=== PATIENT | male | born 1980 | race Caucasian/White ===

== ENCOUNTER 2017-09-12 12:23 | Emergency (ER) | payer SELFPAY ==
--- NOTE | 2017-09-12 13:41 | ER Document Report ---
HPI - HPI Pain Level: 3 Notes: Patient is a 37-year-old male no significant past medical history presents ED complaining of possible perforation to his left tympanic membrane. Patient states that over the last couple days he has had nasal congestion and discharge with your pressure. Patient states that his illness is overall improved, but he was having decreased hearing in the left ear so he went to the urgent care clinic who pulled out wax from his left TM with questionable component of the tympanic membrane. Patient had bleeding in his ear since then, but states that his hearing slightly improved thereafter although it is still muffled. Patient otherwise feels well without any headache, tinnitus, or dizziness. Denies any fever, head injury, neck pain, sore throat, chest pain, palpitations, syncope, cough, shortness of breath, wheeze, dyspnea, abdominal pain, nausea/vomiting/ diarrhea, urinary retention, dysuria, hematuria, or rash. Patient denies any drug allergies. - ROS Notes: REVIEW OF SYSTEMS: CONSTITUTIONAL : Denies fever, chills, or sweats. Denies recent illness. EENT: see hpi CARDIOVASCULAR: Denies chest pain. Denies palpitations or racing or irregular heart beat. RESPIRATORY: Denies cough, cold, or chest congestion. Denies shortness of breath, difficulty breathing, or wheezing. GASTROINTESTINAL: Denies abdominal pain or distention. Denies nausea, vomiting , or diarrhea. Denies blood in vomitus, stools, or per rectum. Denies black, tarry stools. Denies constipation. GENITOURINARY: Denies difficulty urinating, painful urination, burning, frequency, blood in urine, or discharge. MUSCULOSKELETAL: Denies back or neck pain or stiffness. Denies joint pain or swelling. SKIN: Denies rash, lesions or sores. NEUROLOGICAL: Denies dizziness or lightheadedness. Denies headache. Denies weakness or paralysis or loss of use of either side. Denies problems with gait or speech. Denies sensory loss, numbness, or tingling. Denies seizures. PSYCHIATRIC: Denies anxiety or stress. Denies depression, suicidal ideation, or homicidal ideation. ALL OTHER SYSTEMS REVIEWED AND NEGATIVE. Dictation was performed using Rainbow voice recognition software - CONSTITUTIONAL Constitutional: DENIES: Fever, Chills - EENT EENT: REPORTS: Ear Pain - L ear Past Medical History - Social History Smoking Status: Current Every Day Smoker Chew tobacco use (# tins/day): No Frequency of alcohol use: None Drug Abuse: None Family History: Reviewed & Not Pertinent Patient has suicidal ideation: No Patient has homicidal ideation: No Renal/ Medical History: Denies: Hx Peritoneal Dialysis Vertical Provider Document - CONSTITUTIONAL Agree With Documented VS: Yes Notes: PHYSICAL EXAMINATION: GENERAL: Well-appearing, well-nourished and in no acute distress. A&Ox4 HEAD: Atraumatic, normocephalic. EYES: Pupils equal round and reactive to light, extraocular movements intact, sclera anicteric, conjunctiva are normal. ENT: blood in left EAC. rt wnl. Rt TM wnl. Lt TM--cannot visualize the lower 1/3 due to blood in EAC, but the upper 2/3 are intact. Nares patent and without discharge. oropharynx clear without exudates. No tonsilar hypertrophy or erythema. Moist mucous membranes. No sinus tenderness. No mastoid tenderness or erythema. NECK: Normal range of motion, supple without lymphadenopathy. No rigidity/ meningismus. LUNGS: Breath sounds clear to auscultation bilaterally and equal. No wheezes rales or rhonchi. HEART: Regular rate and rhythm without murmurs, rubs, gallops. Extremities: No cyanosis, clubbing, or edema b/l. Peripheral pulses 2+. Capillary refill less than 3 seconds. NEUROLOGICAL: Cranial nerves grossly intact. Normal speech, normal gait. Normal sensory, motor exams PSYCH: Normal mood, normal affect. SKIN: Warm, Dry, normal turgor, no rashes or lesions noted. - INFECTION CONTROL TRAVEL OUTSIDE OF THE [place] IN LAST 30 DAYS: No - RESPIRATORY O2 Sat by Pulse Oximetry: 97 Course - Re-evaluation Re-evalutation: 09/12/17 13:36 Patient is an afebrile, well-hydrated, 37-year-old male who presents the ED with a left TM perforation. Vitals are stable. PE is otherwise unremarkable for any focal neurological deficits. Low suspicion for any sepsis, meningitis, mastoiditis, or other systemic emergent condition at this time. We do not have ENT environmental aide at this time. Treatment as per up to date states that we are to use p.o. and topical antibiotics that are otic safe. I will send him home with a prescription for Ciprodex as well as amoxicillin. Conservative measures for symptoms. Recheck with PCM in 3-5 days. Schedule consult with ENT. Return to the ED with any worsening/concerning symptoms otherwise as reviewed in discharge. Patient is in agreement. - Vital Signs Vital signs: Temp Pulse Resp BP Pulse Ox 98.8 F 87 16 139/87 H 97 09/12/17 12:28 09/12/17 12:28 09/12/17 12:28 09/12/17 12:28 09/12/17 12:28 Discharge - Discharge Clinical Impression: Tympanic membrane perforation Qualifiers: Laterality: left Qualified Code(s): H72.92 - Unspecified perforation of tympanic membrane, left ear Condition: Stable Disposition: HOME, SELF-CARE Instructions: Perforated Eardrum ([facility]), Use of Ear Drops ([facility]) Additional Instructions: Maintain adequate fluid intake Take meds as directed tylenol/ibuprofen as needed over the counter cold medication as needed for symptoms Humidified air may help for any cough F/u: with your PCM in 3-5 days for a recheck Consider consult with ENT Return to the ED with any fever, worsening pain, chest pain, palpitations, syncope, worsening CULP, neck pain/stiffness, shortness of breath, wheezing, drooling, trouble swallowing/breathing, abdominal pain, n/v/d, rash, or worsening/concerning symptoms otherwise. Prescriptions: Amoxicillin Trihydrate [Amoxil 875 mg Tablet] 1 tab PO BID #20 tablet Forms: Elevated Blood Pressure Referrals: HOWARD IRIZARRY DO [ASSOCIATE] - Follow up as needed
[2017-09-12] MEDS ORDERED: CIPROFLOXACIN HCL/DEXAMETH OTIC DROP 7.5 ML AS ONE (13:43)
[2017-09-12 14:14] VITALS: BP 135/82
== END 2017-09-12 14:19 | disposition home or self-care (01) ==
LOC: ER 12:23
DX: H72.92 Unspecified perforation of tympanic membrane, left ear (principal); R09.81 Nasal congestion; H92.02 Otalgia, left ear; F17.200 Nicotine dependence, unspecified, uncomplicated
CPT/HCPCS: 99282; J3490

== ENCOUNTER 2017-09-29 13:12 | Emergency (ER) | payer SELFPAY ==
[2017-09-29] MEDS ORDERED: CIPROFLOXACIN HCL/DEXAMETH OTIC DROP 7.5 ML AS ONE (14:50)
--- NOTE | 2017-09-29 15:27 | ER Document Report ---
HPI - HPI Patient complains to provider of: Ear pain Pain Level: 4 Context: Patient is a 37-year-old male who returns emergency department complaining of left ear pain. Patient was seen here on September 12 and diagnosed with a tympanic membrane perforation discharged home on amoxicillin and Ciprodex drops instruction to follow-up with your nose and throat. Patient did not follow-up with your nose and throat and returns today stating that he is drainage from his ear and continued pain and difficulty hearing. States that he is able to hear but is very muffled. Denies any fevers or chills. - EENT EENT: REPORTS: Ear Pain - left ear pain Past Medical History - Social History Smoking Status: Unknown if Ever Smoked Family History: Reviewed & Not Pertinent Patient has suicidal ideation: No Patient has homicidal ideation: No Renal/ Medical History: Denies: Hx Peritoneal Dialysis Vertical Provider Document - CONSTITUTIONAL Agree With Documented VS: Yes Notes: PHYSICAL EXAM GENERAL: Alert, interacts well. HEENT: NCAT, pale conjunctiva, extraocular movements intact, pupils PERRL. external ear normal, there is evidence of external auditory canal tenderness on the left ear, no evidence of active blood/drainage, cerumen impaction, left external auditory canal with evidence of edema with purulent pustules occluding visibility of the tympanic membrane, Mastoid process nontender no erythema MMM, Uvula midline. Airway patent. No evidence of tonsillar enlargement, peritonsillar abscess, retropharyngeal abscess. PSYCH: Normal affect, normal mood. SKIN: Warm, dry, normal turgor. No rashes or lesions noted. - INFECTION CONTROL TRAVEL OUTSIDE OF THE [place] IN LAST 30 DAYS: No - RESPIRATORY O2 Sat by Pulse Oximetry: 91 Course - Re-evaluation Re-evalutation: 09/29/17 15:45 Patient is a 37-year-old male is hemodynamically stable, no acute distress and afebrile. Presentation today is consistent with otitis externa prohibiting visualization of the tympanic membrane. Consultation with ear nose and throat Dr. Irizarry recommends placement of 2 earwicks with Ciprodex and to follow-up with him this week. - Vital Signs Vital signs: Temp Pulse Resp BP Pulse Ox 98.6 F 84 20 150/78 H 91 L 09/29/17 13:19 09/29/17 13:19 09/29/17 13:19 09/29/17 13:19 09/29/17 13:19 Discharge - Discharge Clinical Impression: Otitis externa Qualifiers: Otitis externa type: unspecified type Chronicity: acute Laterality: left Qualified Code(s): H60.502 - Unspecified acute noninfective otitis externa, left ear Condition: Good Disposition: HOME, SELF-CARE Instructions: Acetaminophen, Use of Ear Drops ([facility]), Using Ear Drops with a Wick ([facility]), Otitis Externa ([facility]) Additional Instructions: Ear drops to affected ear 4 drops twice a day Prescriptions: Ciprofloxacin HCl/Dexameth [Ciprodex Otic Suspension 7.5 ml Bottle] 4 drop OT BID #1 bottle Referrals: HWOARD IRIZARRY DO [ASSOCIATE] - Follow up tomorrow
[2017-09-29 15:47] VITALS: BP 133/65
== END 2017-09-29 15:49 | disposition home or self-care (01) ==
LOC: ER 13:12
DX: H60.502 Unspecified acute noninfective otitis externa, left ear (principal); H92.02 Otalgia, left ear
CPT/HCPCS: 99282; J3490

== ENCOUNTER 2017-12-04 10:52 | Emergency (ER) | payer OTHER ==
[2017-12-04 11:12] VITALS: BP 142/77
[2017-12-04] MEDS ORDERED: CIPROFLOXACIN HCL/DEXAMETH OTIC DROP 7.5 ML AS ONE (11:48)
--- NOTE | 2017-12-04 11:50 | ER Document Report ---
HPI - HPI Patient complains to provider of: Left ear pain Onset: Other - 3 months Onset/Duration: Persistent Quality of pain: Achy Pain Level: 3 Context: Patient presents complaining of left ear pain with drainage. Patient states that he ruptured his eardrum in September and has had problems since then. Patient denies any fever. Patient reports seen in the ear nose and throat doctor today in getting a prescription for antibiotics. Associated Symptoms: Earache Exacerbated by: Denies Relieved by: Denies Similar symptoms previously: Yes Recently seen / treated by doctor: Yes - ROS ROS below otherwise negative: Yes Systems Reviewed and Negative: Yes All other systems reviewed and negative - CONSTITUTIONAL Constitutional: DENIES: Fever - EENT EENT: REPORTS: Ear Pain - GASTROINTESTINAL Gastrointestinal: DENIES: Nausea, Patient vomiting - DERM Skin Color: Normal Skin Problems: None Past Medical History - General Information source: Patient - Social History Smoking Status: Current Every Day Smoker Frequency of alcohol use: None Drug Abuse: None Occupation: None Family History: Reviewed & Not Pertinent - Medical History Medical History: Negative Renal/ Medical History: Denies: Hx Peritoneal Dialysis Surgical Hx: Negative Vertical Provider Document - CONSTITUTIONAL Agree With Documented VS: Yes Exam Limitations: No Limitations General Appearance: WD/WN, No Apparent Distress - INFECTION CONTROL TRAVEL OUTSIDE OF THE [place] IN LAST 30 DAYS: No - HEENT HEENT: Atraumatic Notes: Left TM perforation with minimal otorrhea to left ear canal, no mastoid tenderness or swelling - NECK Neck: Normal Inspection, Supple - RESPIRATORY Respiratory: No Respiratory Distress O2 Sat by Pulse Oximetry: 93 - BACK Back: Normal Inspection - MUSCULOSKELETAL/EXTREMETIES Musculoskeletal/Extremeties: MAEW - NEURO Level of Consciousness: Awake, Alert, Appropriate Motor/Sensory: No Motor Deficit - DERM Integumentary: Warm, Dry Course - Vital Signs Vital signs: Temp Pulse Resp BP Pulse Ox 98.6 F 75 16 142/77 H 93 12/04/17 11:11 12/04/17 11:11 12/04/17 11:11 12/04/17 11:11 12/04/17 11:11 Discharge - Discharge Clinical Impression: Otalgia of left ear, Hx of perforation of tympanic membrane, Elevated blood pressure reading Condition: Stable Disposition: HOME, SELF-CARE Instructions: Use of Ear Drops ([facility]), Perforated Eardrum ([facility]) Additional Instructions: Return immediately for any new or worsening symptoms Followup with your primary care provider, call tomorrow to make a followup appointment Get prescription filled for Ciprodex eardrops and take as directed Follow-up with your ENT doctor for recheck Forms: Elevated Blood Pressure Referrals: HOWARD IRIZARRY DO [ASSOCIATE] - Follow up as needed
== END 2017-12-04 12:08 | disposition home or self-care (01) ==
LOC: ER 10:52
DX: H72.92 Unspecified perforation of tympanic membrane, left ear (principal); H92.02 Otalgia, left ear; R03.0 Elevated blood-pressure reading, without diagnosis of hypertension; F17.200 Nicotine dependence, unspecified, uncomplicated
CPT/HCPCS: 99282; J3490

== ENCOUNTER 2018-01-15 00:01 | Emergency (ER) | payer OTHER ==
[2018-01-15] MEDS ORDERED: KETOROLAC TROMETHAMINE INJ/PF 30 MG/1 ML SDV IM ONE (00:38)
[2018-01-15] MEDS ORDERED: PENICILLIN V POTASSIUM 500 MG TABLET PO ONE (00:38)
--- NOTE | 2018-01-15 00:49 | ER Document Report ---
ED Oral Problem - General Chief Complaint: Jaw Pain Stated Complaint: ABSCESS Time Seen by Provider: 01/15/18 00:26 Mode of Arrival: Ambulatory Information source: Patient TRAVEL OUTSIDE OF THE [place] IN LAST 30 DAYS: No - HPI Patient complains to provider of: Toothache Notes: Patient is here with complaints of left lower dental pain. He states that the pain started this morning is progressively gotten worse. Patient states that he has a prior history of getting dental abscesses in his back teeth and this feels exactly the same. He denies any swelling. He denies any fever. He denies any chest pain or shortness of breath. He denies any difficulty breathing or swallowing. He denies any nausea, vomiting, diarrhea. He denies any chest pain or shortness of breath. No rash. No facial swelling. Nothing makes the pain better or worse. He denies any other complaints at this time. - Related Data Allergies/Adverse Reactions: No Known Allergies Allergy (Verified 12/04/17 10:57) Past Medical History - Social History Smoking Status: Current Every Day Smoker Chew tobacco use (# tins/day): No Frequency of alcohol use: None Drug Abuse: None Family History: Reviewed & Not Pertinent Patient has suicidal ideation: No Patient has homicidal ideation: No Renal/ Medical History: Denies: Hx Peritoneal Dialysis Review of Systems - Review of Systems -: Yes All other systems reviewed and negative Physical Exam - Vital signs Vitals: Temp Pulse Resp BP Pulse Ox 97.8 F 94 20 162/114 H 97 01/15/18 00:09 01/15/18 00:09 01/15/18 00:09 01/15/18 00:09 01/15/18 00:09 - Notes Notes: GENERAL: alert, cooperative, nontoxic, no distress. HEAD: normocephalic, atraumatic EYES: conjunctiva pink without discharge, no external redness or swelling. EARS: no external swelling, no external redness. Right ear canal and TM without acute abnormalities. Left ear canal with significant swelling. No drainage. Patient states that this is chronic. NOSE: atraumatic, no external swelling MOUTH/THROAT: mucous membranes moist and pink. Tenderness to palpation of tooth #21. No obvious gum swelling. No drainable abscess. No sublingual swelling or induration. No trismus or drooling. Voice is normal. No facial or jaw swelling. NECK: soft, supple, full range of motion, no meningismus. CHEST: no distress, lungs clear and equal throughout. No wheezing, rales, rhonchi. CARDIAC: regular rate and rhythm, no murmur, normal capillary refill, normal pulses. BACK: full range of motion, no CVA tenderness. EXTREMITIES: full range of motion of all extremities. No redness, no swelling. NEURO: alert and oriented 3, no focal deficits, full range of motion of all extremities. PYSCH: appropriate mood, affect. Patient is cooperative. SKIN: pink, warm, dry, no rash. Course - Re-evaluation Re-evalutation: 01/15/18 00:45 Patient is nontoxic appearing with stable vitals. Is here with complaints of left lower dental pain. This started this morning. States that he has had prior abscesses in the past and this feels exactly the same. I do not appreciate a drainable abscess at this time. There is no sublingual swelling or induration. No sign of Jamal's angina. Is in no respiratory distress. Vitals are stable aside from elevated blood pressure. Patient drove himself here. He denies any difficulty breathing or swallowing. This point the patient will be given a shot of Toradol and Pen-Vee K here in the emergency department. I will discharge him home with prescription for Pen-Vee K and Voltaren. He is instructed to follow-up with a dentist at the next available appointment, sooner for worsening pain, fever, swelling, difficulty breathing or swallowing, or for any further concerns. The patient is noted to have elevated blood pressure during today's emergency department visit. The patient was informed of this finding. The patient was instructed that this may be related to pre-hypertension and requires further evaluation with a primary care provider. The patient has no hypertensive symptoms at this time. The patient's emergency department workup and current diagnosis were explained to the patient and or family. Follow-up instructions were provided. Medications if prescribed were discussed. Instructions for when to return to the emergency department including specific worrisome symptoms were discussed with the patient and/or family. - Vital Signs Vital signs: Temp Pulse Resp BP Pulse Ox 97.8 F 94 20 162/114 H 97 01/15/18 00:09 01/15/18 00:09 01/15/18 00:09 01/15/18 00:09 01/15/18 00:09 Discharge - Discharge Clinical Impression: Pain, dental Condition: Stable Disposition: HOME, SELF-CARE Instructions: [facility], Penicillin V K ([facility]), Toothache ([facility]), Dentist Additional Instructions: Take medication as prescribed. Follow-up with a dentist at the next available appointment. Follow-up sooner for increasing pain, fever, significant swelling , persistent vomiting, difficulty breathing or swallowing, or for any further concerns. Your blood pressure was elevated during today's visit. Have this rechecked with your doctor. Prescriptions: Diclofenac Sodium [Voltaren 50 Mg Tablet.] 50 mg PO BID #20 tablet. Penicillin V Potassium [Penicillin Vk 500 mg Tablet] 500 mg PO BID #20 tablet Forms: Elevated Blood Pressure, Smoking Cessation Education Referrals: [facility] [Provider Group] - Follow up as needed
[2018-01-15 01:28] VITALS: BP 154/103
== END 2018-01-15 01:28 | disposition home or self-care (01) ==
LOC: ER 00:01
DX: K08.9 Disorder of teeth and supporting structures, unspecified (principal); R68.84 Jaw pain; F17.200 Nicotine dependence, unspecified, uncomplicated
CPT/HCPCS: 99283

== ENCOUNTER 2018-01-17 01:04 | Emergency (ER) | payer OTHER ==
[2018-01-17] MEDS ORDERED: CLINDAMYCIN HCL 150 MG CAPSULE PO ONE (01:53)
[2018-01-17] MEDS ORDERED: LIDOCAINE 2% VISCOUS SOLN 20 ML UDCUP PO ONE (01:53)
--- NOTE | 2018-01-17 01:53 | ER Document Report ---
HPI - HPI Pain Level: 4 Notes: Patient is a 37-year-old male who presents to the ED complaining of left lower dental pain to #20 3-4 days. Pt was eval'd the other day and was placed on penicillin and an NSAID. Pt states that penicillin has not worked for him in the past as he has had multiple teeth removed and would like a different antibiotic. Patient states that if it is possible he would like the first dose before he leaves as he has to go to work in about 3 hours. Patient states that he is otherwise eating and drinking without difficulties. He is urinating normally and having normal bowel movements. He denies any drug allergies. Denies any headache, fever, head injury, neck pain, URI, sore throat, chest pain , palpitations, syncope, cough, shortness of breath, wheeze, dyspnea, abdominal pain, nausea/vomiting/diarrhea, urinary retention, dysuria, hematuria, or rash. - ROS Systems Reviewed and Negative: Yes All other systems reviewed and negative Past Medical History - Social History Smoking Status: Unknown if Ever Smoked Family History: Reviewed & Not Pertinent Renal/ Medical History: Denies: Hx Peritoneal Dialysis Vertical Provider Document - CONSTITUTIONAL Agree With Documented VS: Yes Notes: PHYSICAL EXAMINATION: GENERAL: Well-appearing, well-nourished and in no acute distress. HEAD: Atraumatic, normocephalic. EYES: Pupils equal round and reactive to light, extraocular movements intact, sclera anicteric, conjunctiva are normal. ENT: EAC clear b/l. TM's intact b/l without erythema, fluid, or perforation. Nares patent and without discharge. oropharynx clear without exudates. No tonsilar hypertrophy or erythema. Moist mucous membranes. No sinus tenderness. Uvula midline. No palatine shift. No tongue protrusion. No respiratory compromise. Mouth: Poor dentition. + mild gingivitis. No obvious abscess or discharge noted. No facial swelling. + tenderness to tooth #20. NECK: Normal range of motion, supple without lymphadenopathy. No rigidity/ meningismus. LUNGS: Breath sounds clear to auscultation bilaterally and equal. No wheezes rales or rhonchi. HEART: Regular rate and rhythm without murmurs, rubs, gallops. NEUROLOGICAL: Cranial nerves grossly intact. Normal speech, normal gait. Normal sensory, motor exams PSYCH: Normal mood, normal affect. SKIN: Warm, Dry, normal turgor, no rashes or lesions noted. - INFECTION CONTROL TRAVEL OUTSIDE OF THE [place] IN LAST 30 DAYS: No Course - Re-evaluation Re-evalutation: 01/17/18 01:59 Patient is an afebrile, well-hydrated, 37-year-old male who presents to the ED with dental pain #20, suspect nerve root etiology versus infection. Vitals are acceptable. PE is otherwise unremarkable. No labs or imaging warranted at this time based on H&P. Patient given viscous lidocaine as well as first dose of clindamycin. I will send her home with a prescription for clindamycin. Low suspicion for any meningitis, sepsis, peritonsillar/pharyngeal abscess, respiratory compromise, Jamal's, temporal arteritis, or other emergent systemic condition at this time. Patient is aware this condition can change from initial presentation and he needs to monitor symptoms closely. Conservative measures otherwise for symptoms. Call to schedule an appointment with a dentist for further evaluation and management. Recheck with your PCM this week as well. Return to the ED with any worsening/concerning symptoms otherwise as reviewed in discharge. Patient is in agreement. - Vital Signs Vital signs: Temp Pulse Resp BP Pulse Ox 97.9 F 73 15 145/97 H 98 01/17/18 01:21 01/17/18 01:21 01/17/18 01:21 01/17/18 01:21 01/17/18 01:21 Discharge - Discharge Clinical Impression: Pain, dental Condition: Stable Disposition: HOME, SELF-CARE Instructions: Clindamycin ([facility]), Toothache ([facility]) Additional Instructions: [place] and floss twice daily Maintain fluid intake Take antibiotics as directed Mouthwash, salt water gargles, peroxide rinse as needed Tylenol/ibuprofen as needed Recheck with PCM this week Call today/tomorrow and schedule an appointment with your dentist for further evaluation Return to the ED with any worsening symptoms and/or development of fever, headache, facial swelling, swelling of lips/tongue/throat, trouble swallowing, drooling, hoarseness, neck pain/stiffness, chest pain, palpitations, syncope, shortness of breath, trouble breathing, abdominal pain, n/v/d, numbness/tingling , or other worsening symptoms that are concerning to you. Prescriptions: Clindamycin HCl [Cleocin 300 mg Capsule] 300 mg PO TID #30 capsule Forms: Elevated Blood Pressure Referrals: [facility] [Provider Group] - Follow up as needed
[2018-01-17 02:22] VITALS: BP 136/89
== END 2018-01-17 02:38 | disposition home or self-care (01) ==
LOC: ER 01:04
DX: K08.89 Other specified disorders of teeth and supporting structures (principal)
CPT/HCPCS: 99282; J3490

== ENCOUNTER 2018-11-26 20:52 | Emergency (ER) | payer SELFPAY ==
[2018-11-26] MEDS ORDERED: ACETAMINOPHEN 325 MG TABLET PO ONE (21:46)
[2018-11-26] MEDS ORDERED: CLINDAMYCIN HCL 150 MG CAPSULE PO ONE (21:46)
[2018-11-26] MEDS ORDERED: LIDOCAINE 2% VISCOUS SOLN 20 ML UDCUP PO ONE (21:46)
--- NOTE | 2018-11-26 21:48 | ER Document Report ---
HPI - HPI Patient complains to provider of: Dental pain Time Seen by Provider: 11/26/18 21:26 Onset/Duration: Persistent Quality of pain: Achy Pain Level: 5 Context: Patient presents complaining of dental pain for the past 2 weeks to right upper tooth. Patient states that area has been chipped and has started to worsen recently. Associated Symptoms: Other - Dental pain. denies: Fever Exacerbated by: Denies Relieved by: Denies Similar symptoms previously: Yes Recently seen / treated by doctor: No - ROS ROS below otherwise negative: Yes Systems Reviewed and Negative: Yes All other systems reviewed and negative - EENT Notes: Dental pain - GASTROINTESTINAL Gastrointestinal: DENIES: Nausea, Patient vomiting - MUSCULOSKELETAL Musculoskeletal: DENIES: Neck Pain - DERM Skin Color: Normal Skin Problems: None Past Medical History - General Information source: Patient - Social History Smoking Status: Current Every Day Smoker Chew tobacco use (# tins/day): No Smoking Education Provided: Yes Frequency of alcohol use: None Drug Abuse: None Occupation: contractor Family History: Reviewed & Not Pertinent Patient has suicidal ideation: No Patient has homicidal ideation: No - Medical History Medical History: Negative Renal/ Medical History: Denies: Hx Peritoneal Dialysis Surgical Hx: Negative Vertical Provider Document - CONSTITUTIONAL Agree With Documented VS: Yes Exam Limitations: No Limitations General Appearance: WD/WN, No Apparent Distress - INFECTION CONTROL TRAVEL OUTSIDE OF THE [place] IN LAST 30 DAYS: No - HEENT HEENT: Atraumatic, Normocephalic. negative: Pharyngeal Exudate, Pharyngeal Tenderness, Pharyngeal Erythema, Tympanic Membrane Red, Tympanic Membrane Bulging Mouth Diagram: 1 - Dental fracture, decay, no abscess, no trismus - NECK Neck: Normal Inspection, Supple. negative: Lymphadenopathy-Left, Lymphadenopathy-Right - RESPIRATORY Respiratory: Breath Sounds Normal, No Respiratory Distress - CARDIOVASCULAR Cardiovascular: Regular Rate, Regular Rhythm - MUSCULOSKELETAL/EXTREMETIES Musculoskeletal/Extremeties: MAEW - NEURO Level of Consciousness: Awake, Alert, Appropriate Motor/Sensory: No Motor Deficit - DERM Integumentary: Warm, Dry, No Rash Course - Re-evaluation Re-evalutation: 11/26/18 21:46 Patient without any gingival swelling worrisome for abscess, no trismus, no sublingual or submental swelling. No concern for Jamal's angina. Discharge - Discharge Clinical Impression: Toothache Condition: Stable Disposition: HOME, SELF-CARE Instructions: Clindamycin ([facility]), Dentist, Toothache ([facility]) Additional Instructions: Return immediately for any new or worsening symptoms Followup with your dental care provider, call tomorrow to make a followup appointment Prescriptions: Clindamycin HCl [Cleocin 300 mg Capsule] 300 mg PO TID #21 capsule Naproxen [Naprosyn 250 Nmg Tablet] 1 tab PO BID #14 tablet Forms: Smoking Cessation Education Referrals: [facility] [Provider Group] - Follow up as needed
[2018-11-26 21:56] VITALS: BP 147/86
== END 2018-11-26 21:57 | disposition home or self-care (01) ==
LOC: ER 20:52
DX: K08.9 Disorder of teeth and supporting structures, unspecified (principal); F17.200 Nicotine dependence, unspecified, uncomplicated
CPT/HCPCS: 99282; J3490

== ENCOUNTER 2020-08-11 01:11 | Emergency (ER) | payer SELFPAY ==
[2020-08-11] MEDS ORDERED: OXYCODONE-ACETAMINOPHEN 5-325 MG TABLET PO ONE (01:46)
[2020-08-11] MEDS ORDERED: PROMETHAZINE HCL 25 MG TABLET PO ONE (01:46)
[2020-08-11] MEDS ORDERED: LIDOCAINE 1%/EPINEPHRINE INJ 20 ML VIAL INJ ONE (01:46)
--- NOTE | 2020-08-11 01:48 | ER Document Report ---
ED Medical Screen (RME) - General Chief Complaint: Groin Pain Stated Complaint: GROIN PAIN Time Seen by Provider: 08/11/20 01:46 Notes: 40-year-old male with chief complaint of 2 days of worsening swollen, red, hardening area in the right groin. He states it is similar to abscesses that he has had in the past but despite warm compresses he cannot get this to drain. He denies fever/chills. He states he he has diet-controlled "borderline" diabetes. He denies any other complaints. TRAVEL OUTSIDE OF THE [place] IN LAST 30 DAYS: No - Related Data Allergies/Adverse Reactions: No Known Allergies Allergy (Unverified 08/11/20 01:44) Past Medical History Renal/ Medical History: Denies: Hx Peritoneal Dialysis Physical Exam - Vital signs Vitals: Temp Pulse Resp BP Pulse Ox 97.8 F 106 H 16 151/95 H 99 08/11/20 01:33 08/11/20 01:33 08/11/20 01:33 08/11/20 01:33 08/11/20 01:33 - Skin Location of irregularity: Other - Indurated, tender, erythematous area in the right inguinal crease, no hernia or other abnormality noted, exam somewhat limited by seated position Course - Re-evaluation Re-evalutation: 08/11/20 01:47 I have greeted and performed a rapid initial assessment of this patient. A comprehensive ED assessment and evaluation of the patient, analysis of test results and completion of the medical decision making process will be conducted by additional ED providers. - Vital Signs Vital signs: Temp Pulse Resp BP Pulse Ox 97.8 F 106 H 16 151/95 H 99 08/11/20 01:33 08/11/20 01:33 08/11/20 01:33 08/11/20 01:33 08/11/20 01:33
[2020-08-11] MEDS ORDERED: HYDROCODONE/ACETAMINOPHEN 5-325 MG (6 TAB/ER DISP) PO PRN (03:08)
[2020-08-11] MEDS ORDERED: CEPHALEXIN 500 MG CAPSULE PO ONE (03:08)
[2020-08-11] MEDS ORDERED: SULFAMETHOXAZOLE/TRIMETHOPRIM 800-160 MG TABLET PO ONE (03:08)
--- NOTE | 2020-08-11 03:25 | ER Document Report ---
ED General - General Chief Complaint: Groin Pain Stated Complaint: GROIN PAIN Time Seen by Provider: 08/11/20 01:46 Notes: 40-year-old male with chief complaint of 2 days of worsening swollen, red, hardening area in the right groin. He states it is similar to abscesses that he has had in the past but despite warm compresses he cannot get this to drain. He denies fever/chills. He states he he has diet-controlled "borderline" diabetes. He denies any other complaints. TRAVEL OUTSIDE OF THE [place] IN LAST 30 DAYS: No - Related Data Allergies/Adverse Reactions: No Known Allergies Allergy (Unverified 08/11/20 01:44) Past Medical History - General Information source: Patient - Social History Smoking Status: Current Every Day Smoker Frequency of alcohol use: None Drug Abuse: None Lives with: Family Family History: Reviewed & Not Pertinent Endocrine Medical History: Reports: Hx Diabetes Mellitus Type 2 - Diet controlled Renal/ Medical History: Denies: Hx Peritoneal Dialysis - Immunizations Immunizations up to date: Yes Hx Diphtheria, Pertussis, Tetanus Vaccination: Yes Review of Systems - Review of Systems Constitutional: No symptoms reported EENT: No symptoms reported Cardiovascular: No symptoms reported Respiratory: No symptoms reported Gastrointestinal: No symptoms reported Genitourinary: No symptoms reported Male Genitourinary: No symptoms reported Musculoskeletal: No symptoms reported Skin: See HPI Hematologic/Lymphatic: No symptoms reported Neurological/Psychological: No symptoms reported Physical Exam - Vital signs Vitals: Temp Pulse Resp BP Pulse Ox 97.8 F 106 H 16 151/95 H 99 08/11/20 01:33 08/11/20 01:33 08/11/20 01:33 08/11/20 01:33 08/11/20 01:33 - Notes Notes: GENERAL: Alert, interacts well. No acute distress. HEAD: Normocephalic, atraumatic. EYES: Pupils equal, round, and reactive to light. Extraocular movements intact. ENT: Oral mucosa moist, tongue midline. Oropharynx unremarkable. Airway patent. NECK: Full range of motion. Supple. Trachea midline. No lymphadenopathy. LUNGS: Clear to auscultation bilaterally, no wheezes, rales, or rhonchi. No respiratory distress. Non-tender chest wall. HEART: Regular rate and rhythm. No murmur ABDOMEN: Soft, non-tender. Non-distended. EXTREMITIES: Moves all 4 extremities spontaneously. No edema, normal radial and dorsalis pedis pulses bilaterally. No cyanosis. BACK: no cervical, thoracic, lumbar midline tenderness. No saddle anesthesia, normal distal neurovascular exam. Moves all extremities in full range of motion. NEUROLOGICAL: Alert and oriented x3. Normal speech. Cranial nerves II through XII grossly intact. Strength 5/5 in all extremities. PSYCH: Normal affect, normal mood. SKIN: There is an indurated erythematous area in the right upper groin area at the top of the inguinal crease with spreading cellulitis down into the groin slightly. There is no inclusion of the genitals, no streaking away from the area, no inclusion of the leg or abdomen noted. No fluctuant head, nearby lymphadenopathy, or other concerning findings noted. Course - Re-evaluation Re-evalutation: Patient has cellulitis noted, induration suggesting abscess, but no apparent head. Using ultrasound at bedside I was able to see a slightly deeper and only small sized abscess under the surface. An 18-gauge needle was used to drain this with about 2.5 cc of mixed purulent material and blood, on ultrasound the abscess appeared to have been fully drained. No complications, patient tolerated this well. Area cleaned and dressed. Discussed care, antibiotic use, follow-up, return cautions. Patient states appreciation and agreement. - Vital Signs Vital signs: Temp Pulse Resp BP Pulse Ox 97.8 F 92 16 148/84 H 98 08/11/20 01:33 08/11/20 04:00 08/11/20 04:00 08/11/20 04:00 08/11/20 04:00 Procedures - Incision and Drainage Right inguinal area Type: Single Blade size: Other - 18-gauge needle I&D procedure: Shurclens applied, Sterile dressing applied Incision Method: Incision made with needle Amount/type of drainage: 2.5 cc of mixed purulent material and blood Discharge - Discharge Clinical Impression: Abscess Cellulitis Qualifiers: Site of cellulitis: unspecified site Qualified Code(s): L03.90 - Cellulitis, unspecified Condition: Stable Disposition: HOME, SELF-CARE Instructions: Oral Narcotic Medication ([facility]) Additional Instructions: The small deep abscess was drained at this time, also surrounding infection (cellulitis). Keep the area clean with soap and water, keep it dry, keep an absorbent dressing over the area. Take the antibiotics as prescribed. Follow- up with primary care. Return if you worsen in any way including developing or spreading redness, fever/chills, or any other concerning symptoms. Prescriptions: Sulfamethoxazole/Trimethoprim [Bactrim Ds Tablet] 1 each PO BID #14 tablet Cephalexin Monohydrate [Keflex 500 mg Capsule] 500 mg PO QID #28 capsule
[2020-08-11 04:07] VITALS: BP 148/84
--- OUTSIDE RECORDS SUMMARY | 2020-08-14 08:51 | XMS REPORT ---
:1980 [facility] Address [address] [address] Care Team Providers Name Role Phone Unavailable Unavailable Unavailable Allergies, Adverse Reactions, Alerts This patient has no known allergies or adverse reactions. Medications This patient has no known medications. Problems This patient has no known problems. Procedures This patient has no known procedures. Results This patient has no known results. Encounters Start End Encounter Admission Attending Care Care Encounter Date/Time Date/Time Type Type Clinicians Facility Department ID 2018-09-30 2018-09-30 [id number] 08:41:53 08:41:53 Social History This patient has no known social history. Vital Signs This patient has no known vital signs.
== END 2020-08-11 04:10 | disposition home or self-care (01) ==
LOC: ER 01:11
DX: L02.214 Cutaneous abscess of groin (principal); R10.30 Lower abdominal pain, unspecified; F17.200 Nicotine dependence, unspecified, uncomplicated
CPT/HCPCS: 99283; 87070; 87205; 87075; 87077; 10060; J3490

== ENCOUNTER 2020-08-11 21:32 | Emergency (ER) | payer SELFPAY ==
[2020-08-11] MEDS ORDERED: ACETAMINOPHEN 325 MG TABLET PO ONE (22:07)
[2020-08-11] MEDS ORDERED: IBUPROFEN 600 MG TABLET PO ONE (22:07)
[2020-08-11] MEDS ORDERED: CLINDAMYCIN 300 MG/D5W RTU 300 MG/50 ML RTUPB IV ONE (22:09)
[2020-08-11 22:47] LABS: ABSOLUTE BASOPHILS # (AUTO) 0.1 10^3/uL (0.0-0.2); ABSOLUTE EOSINOPHILS # (AUTO) 0.2 10^3/uL (0.0-0.6); ABSOLUTE MONOCYTES (AUTO) 0.9 10^3/uL (0.1-1.4); BASOPHILS % (AUTO) 0.7 % (0-2); EOSINOPHILS % (AUTO) 1.8 % (0-6); HEMATOCRIT 44.7 % (37.9-51.0); HEMOGLOBIN 15.2 g/dL (13.5-17.0); LYMPHOCYTES % (AUTO) 16.6 % (13-45); MEAN CORPUSCULAR HEMOGLOBIN 28.9 pg (27.0-33.4); MEAN CORPUSCULAR HGB CONC 33.9 g/dL (32.0-36.0); MEAN CORPUSCULAR VOLUME 85 fl (80-97); MONOCYTES % (AUTO) 7.7 % (3-13); PLATELET COUNT 240 10^3/uL (150-450); RED BLOOD COUNT 5.25 10^6/uL (4.35-5.55); SEGMENTED NEUTROPHILS % (AUTO) 73.2 % (42-78); TOTAL CELLS COUNTED % (AUTO) 100 %; WHITE BLOOD COUNT 12.2 10^3/uL (4.0-10.5)
[2020-08-11 23:04] LABS: ALBUMIN 4.6 g/dL (3.5-5.0); ALKALINE PHOSPHATASE 80 U/L (38-126); ANION GAP 12 (5-19); ASPARTATE AMINO TRANSFERASE 19 U/L (17-59); BILIRUBIN,DIRECT 0.2 mg/dL (0.0-0.4); BILIRUBIN,TOTAL 1.1 mg/dL (0.2-1.3); BLOOD UREA NITROGEN 14 mg/dL (7-20); CALCIUM 9.9 mg/dL (8.4-10.2); CARBON DIOXIDE 25 mmol/L (22-30); CHLORIDE 96 mmol/L (98-107); GLUCOSE 367 mg/dL (75-110); POTASSIUM 4.1 mmol/L (3.6-5.0); TOTAL PROTEIN 7.4 g/dL (6.3-8.2)
--- NOTE | 2020-08-12 00:37 | RADIOLOGY REPORT (SQ) ---
EXAM DESCRIPTION: US EXTREMITY MUSCULOSKELETAL LIMITED COMPLETED DATE/TME: 08/12/2020 00:08 CLINICAL HISTORY: 40 years, Male, right groin abscess COMPARISON: None. TECHNIQUE: Direct real-time sonographic images of the right groin obtained using a linear multi hertz transducer. FINDINGS: The right inguinal region there is a 2.0 x 0.7 x 1.6 cm heterogeneous complex hypoechoic fluid collection with surrounding edema no internal blood flow identified. IMPRESSION: 1. Heterogeneous 2.0 cm fluid collection in the right groin. Differential considerations include abscess versus hematoma. Without history of vascular access for trauma abscess would be favored. copyright 2010 [employer]- All Rights Reserved
[2020-08-12] MEDS ORDERED: CLINDAMYCIN 300 MG/D5W RTU 300 MG/50 ML RTUPB IV ONE (02:00)
[2020-08-12] MEDS ORDERED: VANCOMYCIN HCL INJ 1000 MG VIAL IV ONE (06:44)
[2020-08-12] MEDS ORDERED: CEFEPIME 1 GM/D5W RTU 1 GM/50 ML RTUPB IV ONE (06:46)
[2020-08-12] MEDS ORDERED: NORMAL SALINE 1000 ML 1,000 ML IV ONE (06:47)
[2020-08-12] MEDS ORDERED: KETOROLAC TROMETHAMINE INJ/PF 30 MG/1 ML SDV IV ONE (06:50)
--- NOTE | 2020-08-12 11:25 | ER Document Report ---
Entered by JUAN LUIS BEAR SCRIBE 08/12/20 0627 Acting as scribe for:ABIOLA PITTMAN MD ED Skin Rash/Insect Bite/Abscs - General Chief Complaint: Abscess Recheck Stated Complaint: ABSCESS Time Seen by Provider: 08/11/20 22:02 Mode of Arrival: Ambulatory Information source: Patient Notes: This 40 year old male patient presents to the ED today with complaints of wor sening swelling of a right groin abscess that developed x3 days ago. Patient was seen here yesterday for the same complaint and had an I&D done; he was discharged with prescriptions for Bactrim and Keflex. Patient states that the area has gotten bigger, so he decided to come to back to the ED for evaluation. Denies any other symptoms. TRAVEL OUTSIDE OF THE [place] IN LAST 30 DAYS: No - Related Data Allergies/Adverse Reactions: No Known Allergies Allergy (Unverified 08/11/20 01:44) Past Medical History - General Information source: Patient - Social History Smoking Status: Current Every Day Smoker Smoking Education Provided: No Family History: Reviewed & Not Pertinent Endocrine Medical History: Reports: Hx Diabetes Mellitus Type 2 - Diet cont rolled - Immunizations Immunizations up to date: Yes Hx Diphtheria, Pertussis, Tetanus Vaccination: Yes Review of Systems - Review of Systems Constitutional: No symptoms reported EENT: No symptoms reported Cardiovascular: No symptoms reported Respiratory: No symptoms reported Gastrointestinal: No symptoms reported Genitourinary: No symptoms reported Male Genitourinary: No symptoms reported Musculoskeletal: No symptoms reported Skin: See HPI Hematologic/Lymphatic: No symptoms reported Neurological/Psychological: No symptoms reported -: Yes All other systems reviewed and negative Physical Exam - Vital signs Vitals: Temp 100.5 F H 08/11/20 22:03 - General General appearance: Alert In distress: None - HEENT Head: Normocephalic, Atraumatic Eyes: Normal Pupils: PERRL - Respiratory Respiratory status: No respiratory distress Chest status: Nontender Breath sounds: Normal Chest palpation: Normal - Cardiovascular Rhythm: Regular Heart sounds: Normal auscultation, S1 appreciated, S2 appreciated Murmur: No Friction rub: No Gallop: None auscultated - Abdominal Inspection: Obese Distension: No distension Bowel sounds: Normal Tenderness: Nontender - Abdomen soft Organomegaly: No organomegaly - Genitourinary Tenderness: No: Testicle tender - Back Back: Normal, Nontender - Extremities General upper extremity: Normal inspection General lower extremity: Normal inspection. No: Edema - Neurological Neuro grossly intact: Yes Orientation: AAOx4 Sarah Coma Scale Eye Opening: Spontaneous Sarah Coma Scale Verbal: Oriented [place] Coma Scale Motor: Obeys Commands [place] Coma Scale Total: 15 - Psychological Associated symptoms: Normal affect, Normal mood - Skin Skin Temperature: Warm Skin Moisture: Dry Skin Color: Normal Skin irregularity: Tender indurated area - There is a 18 x 3 cm wide area of induration that is erythematous and swollen in the right pubic groin region that is tender to palpation. No purulent drainage or scrotal sac involvment. Course - Re-evaluation Re-evalutation: 08/12/20 11:19 Right groin region of induration and cellulitis is all improved. Patient has less pain at this time. Less area of induration and swelling. - Vital Signs Vital signs: Temp Pulse Resp BP Pulse Ox 98.0 F 68 19 131/67 H 97 08/12/20 08:30 08/12/20 08:30 08/12/20 08:30 08/12/20 08:30 08/12/20 08:30 08/12/20 11:19 Vital signs stable. - Laboratory Result Diagrams: 08/11/20 22:30 08/11/20 22:30 Laboratory results interpreted by me: 08/11/20 08/11/20 22:30 22:30 WBC 12.2 H Absolute Neuts (auto) 9.0 H Sodium 132.7 L Chloride 96 L Glucose 367 H 08/12/20 11:20 White blood cell 12.2 and blood sugar was 367. Patient is a diabetic control type II diabetic. Patient infection most likely has caused his sugars to be higher than usual. Patient does not want to be placed on medications and intends to continue diet control and realizes to improve on his decreasing c arbohydrate ingestion - Diagnostic Test Radiology reviewed: Image reviewed, Reports reviewed Radiology results interpreted by me: 08/12/20 11:21 Extremity Ultrasound 08/11/20 22:10 IMPRESSION: 1. Heterogeneous 2.0 cm fluid collection in the right groin. Differential considerations include abscess versus hematoma. Without history of vascular access for trauma abscess would be favored. copyright 2010 [employer]- All Rights Reserved Ultrasound of the right lower extremity groin region shows heterogeneous 2.0 cm fluid collection in the right groin most likely favoring an abscess. Discharge - Discharge Clinical Impression: Cellulitis, 2 cm abscess in the right groin, Hyperglycemia due to type 2 diabetes mellitus Condition: Stable Disposition: HOME, SELF-CARE Instructions: Abscess ([facility]), Trimethoprim-Sulfa ([facility]) Additional Instructions: Cellulitis You have an infection of your skin and underlying soft tissues called cellulitis. This is due to bacteria, which can enter through any break in the skin, or even through an irritated hair follicle. Untreated, cellulitis will usually worsen. Antibiotics are required. Usually, warm packs or warm soaks, and elevation of the infected area are recommended. You should start getting better within 24 to 36 hours. Most infections respond quickly to the right medication. Follow-up care is important, however, to check for abscess (boil) formation, unsuspected foreign body, or resistant infection. If you develop fever, chills, or if the area of infection is becoming rapidly more swollen or painful, call the doctor at once. Prescriptions: Clindamycin HCl 300 mg PO TID #30 capsule I personally performed the services described in the documentation, reviewed and edited the documentation which was dictated to the scribe in my presence, and it accurately records my words and actions.
[2020-08-12 11:34] VITALS: BP 144/97
== END 2020-08-12 11:34 | disposition home or self-care (01) ==
LOC: ER 21:32
DX: L02.214 Cutaneous abscess of groin (principal); E11.65 Type 2 diabetes mellitus with hyperglycemia; F17.200 Nicotine dependence, unspecified, uncomplicated
CPT/HCPCS: 99285; 96375; 96365; 96366; 96368; 36415; 87040; 83605; 85025; 80053; 76882; J3490; J1885; J7030; J3370; J0692